=== PATIENT | female | born 1955 | race Caucasian/White ===

== ENCOUNTER → 2021-01-29 | Outpatient (CLI) | payer MEDICARE, OTHER ==
[2021-01-29 14:53] LABS: HEMOGLOBIN 9.6 gm/dl (12.3-15.3); RED BLOOD COUNT 4.23 M/UL (4.00-5.10); WHITE BLOOD COUNT 5.7 K/UL (4.5-11.0)
[2021-01-30 08:14] LABS: VITAMIN D, 25-HYDROXY 35.8 ng/mL (30.0-100.0)
[2021-01-30 09:14] LABS: RHEUMATOID ARTHRITIS FACTOR <10.0 IU/mL (0.0-13.9)
[2021-01-31 00:07] LABS: CCP ANTIBODIES IGG/IGA 6 units (0-19)
== END ==
LOC: LAB 13:43
PROVIDERS: Nurse Practitioner Family
DX: M25.50 Pain in unspecified joint (principal); R53.83 Other fatigue; M81.0 Age-related osteoporosis without current pathological fracture; D89.9 Disorder involving the immune mechanism, unspecified; R76.8 Other specified abnormal immunological findings in serum
CPT/HCPCS: 36415; 80053; 82550; 84439; 84443; 85025; 85652; 86140; 86200; 86431

== ENCOUNTER → 2021-05-03 | Outpatient (CLI) | payer OTHER ==
[2021-05-03 18:42] LABS: HEMOGLOBIN 11.8 gm/dl (12.3-15.3); RED BLOOD COUNT 4.41 M/UL (4.00-5.10); WHITE BLOOD COUNT 5.9 K/UL (4.5-11.0)
[2021-05-05 08:14] LABS: COMPLEMENT C3, SERUM 153 mg/dL (82-167); COMPLEMENT C4, SERUM 32 mg/dL (12-38)
[2021-05-07 16:11] LABS: DSDNA CRITHIDIA LUCILIAE IFA Negative (Negative)
== END ==
LOC: LAB 17:19
PROVIDERS: Internal Medicine
DX: M32.9 Systemic lupus erythematosus, unspecified (principal)
CPT/HCPCS: 36415; 80053; 81001; 82570; 84156; 85025; 86160; 86162; 86255

== ENCOUNTER → 2021-06-04 | Outpatient (CLI) | payer MEDICARE, OTHER | LOC: ECHO 10:36 | DX: M35.1 Other overlap syndromes (principal); I27.20 Pulmonary hypertension, unspecified | CPT/HCPCS: ECHO; 93306 ==

== ENCOUNTER → 2021-09-05 | Outpatient (CLI) | payer MEDICARE, OTHER | LOC: HEART 5 14:13 | DX: R06.00 Dyspnea, unspecified (principal) | CPT/HCPCS: 94010 ==